=== PATIENT | male | born 1960 | race African-American/Black ===

== ENCOUNTER 2018-08-11 17:04 | Emergency (ER) | payer SELFPAY ==
--- NOTE | 2018-08-11 18:04 | CT ---
CT OF THE HEAD 08/11/18 COMPARISON: None. HISTORY: Head injury. TECHNIQUE: Serial axial CT imaging obtained at 5 mm intervals from vertex through skull base without contrast. FINDINGS: The imaged paranasal sinuses and mastoid air cells appear well aerated. There is no displaced calvari al fracture. No intracranial hemorrhage, midline shift, mass effect, or ventricular enlargement. IMPRESSION: No intracranial hemorrhage or displaced calvarial fracture. POS: [facility]
--- NOTE | 2018-08-11 18:08 | CT ---
CERVICAL SPINE CT WITHOUT CONTRAST 08/11/18 COMPARISON: None. HISTORY: Injury, trauma, pain. TECHNIQUE: Serial axial CT imaging at 2.5 mm intervals from skull base through lung apices without contrast. Cor onal and sagittal reformatted imaging obtained. FINDINGS: The craniocervical junction appears intact. There is moderate degenerative change at the atlantoaxial interspace. There is straightening of the normal cervical lordosis. 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 The C1 ring appears intact. The occipital condyles, the dense, and the C1-2 articulation demonstrate no acute findings. There is multilevel bilateral uncovertebral osteophyte formation, most prominent a t C3-4, left greater than right, and at the C5-6 level on the right. No anterolisthesis or retrolisthesis is seen. There is no prevertebral soft tissue swelling, displace d fracture, or evidence of dislocation seen. IMPRESSION: Multilevel cervical spine degenerative change. No acute osseous abnormality. POS: [facility]
== END 2018-08-11 20:27 | disposition home or self-care (01) ==
LOC: ERS 17:04
DX: S00.93XA Contusion of unspecified part of head, initial encounter (principal); S10.93XA Contusion of unspecified part of neck, initial encounter; M50.30 Other cervical disc degeneration, unspecified cervical region; S60.512A Abrasion of left hand, initial encounter; I10 Essential (primary) hypertension; Z79.82 Long term (current) use of aspirin; Z79.899 Other long term (current) drug therapy; W20.8XXA Other cause of strike by thrown, projected or falling object, initial encounter
CPT/HCPCS: 70450; 72125